=== PATIENT | female | born 1940 | race Caucasian/White ===

== ENCOUNTER 2016-09-20 13:33 | Emergency (ER) | payer OTHER ==
--- NOTE | 2016-09-20 15:24 | EDPHY ---
H & P Stated Complaint: misstepped fell on stairs hurt r wrist and hit head/no loc Time Seen by Provider: 09/20/16 15:08 HPI/ROS: CHIEF COMPLAINT: Right wrist pain HISTORY OF PRESENT ILLNESS: Patient is a 75-year-old female who fell down the stairs at her home around 10 hours ago. She has pain to her right wrist with moderate swelling. She also hit her head but denies headache or neck pain. She denies loss of consciousness. No nausea vomiting or seizures. She turned the wrong way after going to the bathroom. REVIEW OF SYSTEMS: Constitutional: denies: chills, fever, recent illness, recent injury EENTM: denies: blurred vision, double vision, nose congestion Respiratory: denies: cough, shortness of breath Cardiac: denies: chest pain, irregular heart rate, lightheadedness, palpitations Gastrointestinal/Abdominal: denies: abdominal pain, diarrhea, nausea, vomiting, blood streaked stools Genitourinary: denies: dysuria, frequency, hematuria, pain Musculoskeletal: See HPI Skin: denies: lesions, rash, jaundice, bruising Neurological: denies: headache, numbness, paresthesia, tingling, dizziness, weakness Hematologic/Lymphatic: denies: blood clots, easy bleeding, easy bruising Immunologic/allergic: denies: HIV/AIDS, transplant EXAM: GENERAL: Well-appearing, well-nourished and in no acute distress. HEAD: Atraumatic, normocephalic. EYES: Pupils equal round and reactive to light, extraocular movements intact, sclera anicteric, conjunctiva are normal. ENT: TMs normal, nares patent, oropharynx clear without exudates. Moist mucous membranes. NECK: Normal range of motion, supple without lymphadenopathy or JVD. LUNGS: Breath sounds clear to auscultation bilaterally and equal. No wheezes rales or rhonchi. HEART: Regular rate and rhythm without murmurs, rubs or gallops. ABDOMEN: Soft, nontender, normoactive bowel sounds. No guarding, no rebound. No masses appreciated. BACK: No CVA tenderness, no spinal tenderness, step-offs or deformities EXTREMITIES: Pain and bruising and minor swelling to right wrist. No obvious deformity. Normal pulses and capillary refill. NEUROLOGICAL: Cranial nerves II through XII grossly intact. Normal speech, normal gait. 5/5 strength, normal movement in all extremities, normal sensation PSYCH: Normal mood, normal affect. SKIN: Warm, dry, normal turgor, no visible rashes or lesions. Source: Patient Exam Limitations: No limitations - Personal History Current Tetanus/Diphtheria Vaccine: No - Medical/Surgical History Hx Asthma: No Hx Chronic Respiratory Disease: No Hx Diabetes: No Hx Cardiac Disease: No Hx Renal Disease: No Hx Cirrhosis: No Hx Alcoholism: No Hx HIV/AIDS: No Hx Splenectomy or Spleen Trauma: No Other PMH: denies - Family History Significant Family History: No pertinent family hx - Social History Smoking Status: Never smoked Alcohol Use: Sober Drug Use: None Constitutional: Initial Vital Signs Temperature (C) 36.8 C 09/20/16 13:50 Heart Rate 96 09/20/16 13:50 Respiratory Rate 18 09/20/16 13:50 Blood Pressure 103/64 09/20/16 13:50 O2 Sat (%) 96 09/20/16 13:50 O2 Delivery Mode Room Air Allergies/Adverse Reactions: latex Allergy (Verified 09/20/16 13:50) Home Medications: Medication Instructions Recorded NK [No Known Home Meds] 09/20/16 Medical Decision Making - Diagnostics Imaging Results: Imaging Impressions Wrist X-Ray 09/20/16 13:54 Impression: 1. Complex distal right radial fracture with intra-articular involvement. No displacement. 2. Moderate to marked degenerative changes first carpometacarpal joint. Head CT 09/20/16 15:50 Impression: 1. No significant intracranial abnormality seen. If symptoms worsen, additional imaging may be necessary. Findings discussed with Tera Mccullough M.D. at 16:33 hour, 09/20/2016. Imaging: Discussed imaging studies w/ call center agent Radiologist Procedures: Procedure: Splint placement. A sugar-tong splint was applied. After application of the splint I returned and re-examined the patient. The splint was adequately immobilizing the joint and distal to the splint the patient's circulation and sensation was intact. ED Course/Re-evaluation: We discussed the patient's x-ray results. She will be placed in a splint. I recommended CT scan of her head because of her age. Patient and son have declined this and son will observe her. It is reassuring that is already been 10 hours and she is relatively asymptomatic. They are concerned about radiation exposure. Patient tolerated splint placement. They did decide to get a CT scan which is unremarkable. Patient and family are eager to go home. Differential Diagnosis: Partial list of the Differential diagnosis considered include but were not limited to; wrist fracture, head injury, and although unlikely based on the history and physical exam, I also considered syncope, spinal injury. I discussed these differential diagnoses and the plan with the patient as well as the usual and expected course. The patient understands that the diagnosis is provisional and that in medicine we are not always correct and that further workup is often warranted. Usual and customary warnings were given. All of the patient's questions were answered. The patient was instructed to return to the emergency department should the symptoms at all worsen or return, otherwise to followup with the physician as we discussed. Departure - Departure Disposition: Home, Routine, Self-Care Clinical Impression: Wrist fracture, right Qualifiers: Encounter type: initial encounter Fracture type: closed Qualified Code(s): S62.101A - Fracture of unspecified carpal bone, right wrist, initial encounter for closed fracture Condition: Fair Instructions: Wrist Fracture in Adults (ED) Referrals: STARR OCONNELL [Other] - As per Instructions Jean London MD [Medical Doctor] - As per Instructions Stand Alone Forms: Airline Excuse
[2016-09-20 17:09] VITALS: BP 144/76; PULSE 71; RESP 16; TEMP 98.1; O2SAT 98
== END 2016-09-20 17:08 | disposition home or self-care (01) ==
DX: S62.101A Fracture of unspecified carpal bone, right wrist, initial encounter for closed fracture (principal); Z91.040 Latex allergy status; W10.9XXA Fall (on) (from) unspecified stairs and steps, initial encounter; Y92.009 Unspecified place in unspecified non-institutional (private) residence as the place of occurrence of the external cause
CPT/HCPCS: 70450; 73110; 99284; A4565